=== PATIENT | female | born 1980 | race Caucasian/White ===

== ENCOUNTER 2022-12-28 19:50 | Emergency (ER) | payer SELFPAY ==
[~2022-12-28] VITALS: Ht 167.6 cm; Wt 104.0 kg
[~2022-12-28 19:50] MED LIST: IBUP-2343 PO; NITR-75 PO
[2022-12-28] MEDS ORDERED: ACETAMINOPHEN 500 MG TABLET PO ONE (22:15)
[2022-12-28] MEDS ORDERED: ONDANSETRON HCL 4 MG TABLET PO ONE (22:45)
[2022-12-29] MEDS ORDERED: IBUPROFEN 600 MG TABLET PO ONE (01:00)
[2022-12-29 01:20] VITALS: BP 128/71
== END 2022-12-29 01:50 | disposition home or self-care (01) ==
LOC: EMS 19:58
DX: S20.219A Contusion of unspecified front wall of thorax, initial encounter (principal); R51.9 Headache, unspecified; Z98.890 Other specified postprocedural states; Z88.2 Allergy status to sulfonamides; Z88.8 Allergy status to other drugs, medicaments and biological substances; V89.2XXA Person injured in unspecified motor-vehicle accident, traffic, initial encounter; Y93.89 Activity, other specified; Y92.89 Other specified places as the place of occurrence of the external cause; Y99.8 Other external cause status
CPT/HCPCS: 99284; 70450; 71250; 72125; 93005; Q0162